=== PATIENT | male | born 1975 | race Caucasian/White ===

== ENCOUNTER → 2016-09-21 | Emergency (ER) | payer SELFPAY ==
[~2016-09-21] VITALS: Ht 162.6 cm; Wt 95.7 kg
[~2016-09-21] MED LIST: ED- oxyCODONE/ACETAMINOPHEN 5MG-325MG (PERCOCET) 8 TABLETS/BTL PO ONE
[2016-09-21 08:46] VITALS: BP 121/88
== END | disposition home or self-care (01) ==
LOC: ED 06:15
DX: M25.562 Pain in left knee (principal); F17.210 Nicotine dependence, cigarettes, uncomplicated
CPT/HCPCS: 73562; 99282; 99283

== ENCOUNTER 2016-09-22 08:50 | Emergency (ER) | payer SELFPAY ==
[~2016-09-22] VITALS: Ht 162.6 cm; Wt 95.0 kg
[2016-09-22] MEDS ORDERED: KETOROLAC 60 MG/2 ML (TORADOL) VIAL IM ONE (09:40)
[2016-09-22 10:00] VITALS: BP 110/72
== END 2016-09-22 10:01 | disposition home or self-care (01) ==
LOC: ED 08:51
DX: M17.12 Unilateral primary osteoarthritis, left knee (principal)
CPT/HCPCS: 96372; 99282; J1885; 99283